=== PATIENT | female | born 1990 | race American Indian/Alaskan Native ===

== ENCOUNTER 2019-08-19 11:49 | Observation (INO) | payer MEDICAID ==
[2019-08-19 12:48] LABS: Bilirubin,Urine NEG (Negative); Blood,Urine NEG (Negative); Color,Urine Yellow (Yellow); Mucus,Urine FEW /HPF; Protein,Urine <15 mg/dL mg/dL (Negative); Urobilinogen,Urine < 2.0 mg/dL (<2.0)
[2019-08-19] MEDS: LACTATED RINGERS 1,000 ML IV SCH ×2 (12:52→14:02)
[2019-08-19 15:03] LABS: Amphetamine Screen,Urine PRESUMPTIVE NEGATIVE; Benzodiazepines Screen,Urine PRESUMPTIVE NEGATIVE; Cannabinoid Screen,Urine PRESUMPTIVE NEGATIVE; Cocaine Screen,Urine PRESUMPTIVE NEGATIVE; Methadone Screen,Urine PRESUMPTIVE NEGATIVE; Opiate Screen,Urine PRESUMPTIVE NEGATIVE
[2019-08-19 15:07] LABS: Hematocrit 31.7 % (30.3-42.9); Hemoglobin 10.6 gm/dl (10.1-14.3); Mean Corpuscular HGB Conc 34 % (30-34); Mean Corpuscular Volume 93 fl (79-97); Platelet Count 171 K/mm3 (140-440); Red Blood Count 3.39 M/mm3 (3.65-5.03); Red Cell Distribution Width 13.8 % (13.2-15.2)
--- NOTE | 2019-08-19 16:00 | Ultrasound Report ---
ULTRASOUND OBSTETRIC LIMITED INDICATION / CLINICAL INFORMATION: bleeding. TECHNIQUE: Transabdominal ultrasound imaging. COMPARISON: None available. FINDINGS: HEART RATE (beats per minute): 149 AMNIOTIC FLUID INDEX (cm) = not measured PRESENTATION: Cephalic. PLACENTA: Anterior, right lateral, grade 1. No evidence for abruption. ADDITIONAL FINDINGS: The cervix measures 3.7 cm IMPRESSION: No acute abnormality is detected. Signer Name: Bipin Patton Jr, MD Signed: 08/19/2019 3:56 PM Workstation Name: [id number]
[2019-08-19 16:01] LABS: Alanine Aminotransferase 7 units/L (7-56); Albumin 3.3 g/dL (3.9-5); BUN/Creatinine Ratio 10; Blood Urea Nitrogen 5 mg/dL (7-17); Calcium 8.8 mg/dL (8.4-10.2); Hemolysis Index 11
[2019-08-20] MEDS: LACTATED RINGERS 1,000 ML IV SCH (08:51)
[2019-08-20 09:36] VITALS: BP 101/52
--- NOTE | 2019-08-20 09:45 | History and Physical Report ---
History of Present Illness Date of examination: 08/19/19 Date of admission: 08/19/19 11:50 Chief complaint: Low abd pains at 25+5 wks gestation. History of present illness: 29 yr old, at 25+1wks. GEORGE 12/02/2019. Came in with contractions plus rectal bleeding with defecation in the past week. No current rectal bleeding. Patient denied contraction type pains, no vaginal bleeding or leakage of fluids and fetus was active. Past History Past Medical History: no pertinent history - Obstetrical History Expected Date of Delivery: 12/02/19 Actual Gestation: 25 Week(s) 1 Day(s) : 9 Para: 3 Medications and Allergies Allergies Allergy/AdvReac Type Severity Reaction Status Date / Time No Known Allergies Allergy Verified 12/17/15 19:55 Home Medications Medication Instructions Recorded Confirmed Last Taken Type No Known Home Medications [No 01/02/16 08/19/19 Unknown History Reported Home Medications] Active Meds: Active Medications Lactated Ringer's (Lactated Ringers) 1,000 mls @ 125 mls/hr IV DIRECT ANSELMO Last Admin: 08/20/19 08:51 Dose: 125 mls/hr Documented by: Review of Systems All systems: negative - Vital Signs Vital signs: Vital Signs Temp Pulse Resp BP 98.3 F 73 20 109/59 08/19/19 12:11 08/19/19 12:11 08/19/19 12:11 08/19/19 12:11 Temp Pulse Resp BP Pulse Ox 97.9 F 72 18 101/52 08/20/19 07:30 08/20/19 09:36 08/20/19 07:30 08/20/19 09:36 - Physical Exam Breasts: Positive: deferred Lungs: Positive: Normal air movement Abdomen: Positive: normal appearance, soft, distention, normal bowel sounds. Negative: tenderness, guarding - Obstetrical FHR: auscultation normal, category 1 Uterine Contraction Monitor Mode: External (irritable tracing: require prolonged obs.) Results Result Diagrams: 08/19/19 Unknown 08/19/19 15:30 Abnormal lab results 08/19/19 08/19/19 Range/Units 15:30 Unknown RBC 3.39 L (3.65-5.03) M/mm3 BUN 5 L (7-17) mg/dL Creatinine 0.5 L (0.7-1.2) mg/dL Total Protein 6.1 L (6.3-8.2) g/dL Albumin 3.3 L (3.9-5) g/dL All other labs normal. Assessment and Plan - Patient Problems (1) Uterine irritability Current Visit: Yes Status: Acute Plan to address problem: Ob US was done. Patient will remain under observation re irritable uterus. (2) Rectal bleeding Current Visit: Yes Status: Acute Plan to address problem: Patient was told to see her providers upon discharge for referral to a general surgeon. She was also counseled about softening her bowel movements with more fiber and stool softeners. Told to avoid laxatives as effect can spill over to the uterus.
--- NOTE | 2019-08-20 10:00 | Discharge Summary ---
Providers - Providers Date of Admission: 08/19/19 11:50 Date of discharge: 08/20/19 Attending physician: ISABEL QURESHI 08/19/19 17:14 Consult to Physician [CONS] Routine Comment: PT IS BLEEDING FROM RECTAL Consulting Provider: CANDIS QURESHI Physician Instructions: 25 WKS IUP Reason For Exam: RECTAL BLEEDING Primary care physician: ISABEL QURESHI Hospitalization Reason for admission: observation Disposition: - TO HOME OR SELFCARE - Discharge Diagnoses (1) Uterine irritability Status: Acute (2) Rectal bleeding Status: Acute Plan - Provider Discharge Summary Activity: routine, no heavy lifting 4 weeks, no strenuous exercise Diet: other (High fiber diet. may use otc stool softeners. Request referral to a general surgeon for rectal bleed or go to the er if recurs.) Additional instructions: [] Smoking cessation referral if applicable(refer to patient education folder for contact #) [] Refer to [facility] Booklet Call your doctor immediately for: * Fever > 100.5 * Heavy vaginal bleeding ( >1 pad per hour) * Severe persistent headache * Shortness of breath * Reddened, hot, painful area to leg or breast * Drainage or odor from incision. * Keep incision clean and dry at all times and follow doctor's instructions regarding bathing/showering - Follow up plan Follow up: ISABEL QURESHI MD [Primary Care Provider] - 7 Days
== END 2019-08-20 10:29 | disposition home or self-care (01) ==
LOC: TRG 11:49 → LD 11:50
PROVIDERS: ADMIT Obstetrics & Gynecology; ATTEND Obstetrics & Gynecology
DX: O26.893 Other specified pregnancy related conditions, third trimester (principal); R10.30 Lower abdominal pain, unspecified; O46.8X2 Other antepartum hemorrhage, second trimester; K62.5 Hemorrhage of anus and rectum; Z3A.25 25 weeks gestation of pregnancy
CPT/HCPCS: 36415; 76815; 80053; 80307; 81001; 85027; 87086; 87116; G0378; J7120

== ENCOUNTER 2019-10-18 02:50 | Outpatient (CLI) | payer MEDICAID ==
[2019-10-18] MEDS ORDERED: LACTATED RINGERS 1,000 ML IV ONE (03:00)
[2019-10-18] MEDS ORDERED: LACTATED RINGERS 1,000 ML ONE ×2 (03:29→04:35)
[2019-10-18] MEDS: TERBUTALINE 1 MG/1 ML INJ SUB-Q SCH ×2 (06:34→07:30)
[2019-10-18] MEDS ORDERED: ceFAZolin/Water 2 GM/20 ML 2 GM/20 ML SYRINGE IV ONE (13:16)
[2019-10-18 13:21] VITALS: BP 101/51
== END 2019-10-18 13:40 | disposition home or self-care (01) ==
LOC: TRG 02:50
PROVIDERS: ATTEND Obstetrics & Gynecology
DX: O26.893 Other specified pregnancy related conditions, third trimester (principal); M54.5 Low back pain; R10.30 Lower abdominal pain, unspecified; Z3A.33 33 weeks gestation of pregnancy
CPT/HCPCS: 96365; 96372; J0690; J3105; J7120; 96361

== ENCOUNTER 2019-11-15 05:12 | Outpatient (CLI) | payer MEDICAID ==
[2019-11-15 05:56] VITALS: BP 101/56
[2019-11-15] MEDS ORDERED: LACTATED RINGERS 1,000 ML IV ONE (06:06)
--- NOTE | 2019-11-15 10:12 | Ultrasound Report ---
ULTRASOUND OBSTETRIC LIMITED ULTRASOUND BIOPHYSICAL PROFILE INDICATION / CLINICAL INFORMATION: wellbeing. COMPARISON: None available. FINDINGS: BREATHING MOVEMENT = 2 GROSS BODY MOVEMENT = 2 TONE = 2 QUALITATIVE AMNIOTIC FLUID VOLUME = 2 TOTAL BIOPHYSICAL SCORE = 8/8 AMNIOTIC FLUID INDEX (cm) = 11 PRESENTATION: Cephalic. HEART RATE (beats per minute): 131 ADDITIONAL FINDINGS: None. IMPRESSION: 1. Biophysical Score = 8/8 Signer Name: Monroe Omer MD Signed: 11/15/2019 10:07 AM Workstation Name: [id number]
--- NOTE | 2019-11-17 06:58 | Event Note ---
Date: 11/15/19 Late entry Triage Note for 11/15/2019: Patient is a 29 year old who presents to rule out labor. She complains of pelvic pressure and contractions. She denies leaking of fluid or vaginal bleeding. Patient reports active movement. SVE 1/0/-3; no cervical change noted after several hours. NST reactive, BPP 8/8, BENIGNO 11 cm. Patient was d ischarged home in good condition and was advised to follow up with her primary OB this week. Signs of labor, warning signs of late , and daily movement counting were discussed with patient.
== END 2019-11-15 10:10 | disposition home or self-care (01) ==
LOC: TRG 05:12
PROVIDERS: ATTEND Obstetrics & Gynecology
DX: O47.1 False labor at or after 37 completed weeks of gestation (principal); Z3A.37 37 weeks gestation of pregnancy
CPT/HCPCS: 76815; 76819; J7120

== ENCOUNTER 2019-11-18 15:06 | Observation (INO) | payer MEDICAID ==
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
[2019-11-18] MEDS ORDERED: ePHEDrine SULFATE 50 MG/1 ML INJ IV PRN (21:00)
[2019-11-18] MEDS ORDERED: BUTORPHANOL 2 MG/1 ML INJ IV PRN (21:00)
[2019-11-18] MEDS ORDERED: LIDOCAINE (2%) 20 MG/1 ML VIAL 20 ML MDV INFILTRATI ONE (21:00)
[2019-11-18] MEDS ORDERED: TERBUTALINE 1 MG/1 ML INJ IVP PRN (21:00)
[2019-11-18] MEDS ORDERED: fentaNYL 100 MCG/2 ML INJ IV PRN (21:00)
[2019-11-18] MEDS ORDERED: MINERAL OIL 30 ML ORAL LIQD PO PRN (21:00)
[2019-11-18] MEDS ORDERED: TERBUTALINE 1 MG/1 ML INJ SUB-Q PRN (21:00)
[2019-11-18] MEDS ORDERED: OXYTOCIN 20 UNIT/1000ML DRIP 20 UNITS/1,000 ML BAG IV SCH (21:00)
[2019-11-18] MEDS ORDERED: LACTATED RINGERS 1,000 ML IV SCH (21:00)
--- NOTE | 2019-11-18 22:21 | Ultrasound Report ---
Limited OB ultrasound INDICATION: Decreased movement FINDINGS: There is a single intrauterine in a cephalic presentation. Amniotic fluid index i s 18.7 cm which is within the normal limits. heart rate is 143 bpm. BIOPHYSICAL PROFILE INDICATION: Decreased movement COMPARISON: None FINDINGS: breathing movement: 2/2 movement: 2/2 posture and tone: 2/2 Qualitative amniotic fluid volume: 2/2 IMPRESSION: Total score for biophysical profile is 8/8 heart rate is 143 bpm Signer Name: Kwabena Lombardo MD Signed: 11/18/2019 10:16 PM Workstation Name: [id number]
[2019-11-18 22:30] LABS: Hematocrit 32.3 % (30.3-42.9); Hemoglobin 10.7 gm/dl (10.1-14.3); Mean Corpuscular HGB Conc 33 % (30-34); Mean Corpuscular Volume 83 fl (79-97); Platelet Count 158 K/mm3 (140-440); Red Blood Count 3.87 M/mm3 (3.65-5.03); Red Cell Distribution Width 13.8 % (13.2-15.2)
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
[2019-11-19 07:47] VITALS: BP 95/53
--- NOTE | 2019-11-19 07:57 | Discharge Summary ---
Providers - Providers Date of Admission: 11/18/19 21:00 29 y/o was sent from [facility] office on 11/18/19 for c/o uc and decreased FM. Upon admission pt was found to have a CAT I FHT and gordo q2 min with c/o pain. Pt's cervix was 3-4/40%/-3. BPP was 8/8. Pt was admitted and monitored throughout the night in anticipation for an . However, pts uc have become sporadic. She denies c/o uc and admits to [facility]. After consulting with Dr Lr the pt was d/cd home and advised to return when uc are strong and occuring q 10 min, or if she develops SROM, decreased FM or vag bleeding. Pt was advised to continue her OB appts at [facility]. Date of discharge: 11/19/19 Attending physician: ISABEL LR Primary care physician: ISABEL LR Hospitalization Reason for admission: other (decreased FM) Disposition: - TO HOME OR SELFCARE - Discharge Diagnoses (1) 38 weeks gestation of Status: Acute (2) Anxiety and depression Status: Chronic (3) Active labor at term Status: Acute Plan - Provider Discharge Summary Activity: routine Diet: routine Instructions: other (advised to return when uc are strong and occuring q Return to hosp when uc are 10 min apart for 1 hour, or if develops SROM, decreased FM or vag bleeding. Pt was advised to continue her OB appts at [facility]. Continue home meds as prescribed.) Additional instructions: [] Smoking cessation referral if applicable(refer to patient education folder for contact #) [] Refer to [facility] Booklet Call your doctor immediately for: * Fever > 100.5 * Heavy vaginal bleeding ( >1 pad per hour) * Severe persistent headache * Shortness of breath * Reddened, hot, painful area to leg or breast * Drainage or odor from incision. * Keep incision clean and dry at all times and follow doctor's instructions regarding bathing/showering - Follow up plan Follow up: ISABEL LR MD [Primary Care Provider] - 7 Days
== END 2019-11-19 08:22 | disposition home or self-care (01) ==
LOC: LD 15:06 → TRG 15:06 → LD 21:00 → TRG 21:31
PROVIDERS: ADMIT Obstetrics & Gynecology; ATTEND Obstetrics & Gynecology
DX: O36.8130 Decreased fetal movements, third trimester, not applicable or unspecified (principal); O62.9 Abnormality of forces of labor, unspecified; O99.343 Other mental disorders complicating pregnancy, third trimester; O98.513 Other viral diseases complicating pregnancy, third trimester; B00.9 Herpesviral infection, unspecified; F41.9 Anxiety disorder, unspecified; F32.9 Major depressive disorder, single episode, unspecified; Z79.899 Other long term (current) drug therapy; Z3A.38 38 weeks gestation of pregnancy
CPT/HCPCS: 36415; 76815; 76819; 85027; 86850; 86900; 86901; G0378; J2590; J7120